=== PATIENT | female | born 1950 | race Caucasian/White ===

== ENCOUNTER 2023-01-07 15:39 | Inpatient (IN) | payer MEDICARE, MEDICAID, SELFPAY ==
[2023-01-07] VITALS (23 sets, daily range): BP systolic 105–146; BP diastolic 50–84; PULSE 78–165; RESP 13–22; TEMP 36.2–37.8; O2SAT 90–99; BMI 29.0
--- NOTE | ~2023-01-07 | CT_ITS ---
EXAMINATION: CT abdomen pelvis w con DATE: 01/07/2023 17:34 INDICATION: Vomiting TECHNIQUE: Computed tomography (CT) of the abdomen and pelvis was performed with 100 mL Omnipaque-350 intravenous contrast. Automated exposure control and iterative reconstruction technique were employe d. The dose-length product was 378.02 mGy-cm. COMPARISON: None. FINDINGS: Lower thorax: Moderate coronary artery calcification. Liver: Hepatomegaly. Biliary/Gallbladder: Gallbladder is mildly distended, otherwise normal. No bile duct dilation. Pancreas: No mass or duct dilation. Spleen: Granulomatous calcifications. Adrenals: Small left adrenal adenoma. Kidneys: Moderate right and mild left perinephric stranding. Patchy bilateral renal parenchymal enhan cement. Mild bilateral caliectasis and pelviectasis. Urothelial enhancement bilaterally. Bilateral si mple cysts and multiple hypodensities that are too small to characterize. GI tract: Mild distal esophageal and gastric wall edema. No small or large bowel dilation. Normal priscilla endix. Diverticulosis without diverticulitis. Mesentery/Peritoneum: No ascites, mass, or free air. Retroperitoneum: No mass. Atherosclerotic abdominal aortic and/or arterial calcifications. Pelvis: Mild urinary bladder wall thickening. Pelvic contents are otherwise grossly normal, although partially obscured by metal artifact. Soft Tissues: Soft tissues and body wall unremarkable. Bones: Left revision arthroplasty. Fractured cerclage wires and buttressing material adjacent to the greater tuberosity, without obvious perihardware fracture or loosening. IMPRESSION: Cystitis with findings concerning for bilateral ascending infection and pyelonephritis, worse on the right. Mild esophagitis/gastritis. Hepatomegaly. Mild gallbladder hydrops. Reviewed, dictated and finalized at location K. IMPRESSION: Cystitis with findings concerning for bilateral ascending infection and pyelone phritis, worse on the right. Mild esophagitis/gastritis. Hepatomegaly. Mild gal lbladder hydrops.
--- NOTE | 2023-01-07 15:44 | ECG_ITS ---
Measurements Intervals [place] Rate: 169 P: PA: 0 QRS: 0 QRSD: 83 T: 26 QT: 227 QTc: 380 Interpretive Statements ATRIAL FIBRILLATION WITH RAPID VENTRICULAR RESPONSE ST-T WAVE ABNORMALITY IN ANTEROLATERAL LEADS- CONSIDER ISCHEMIA BASELINE ARTIFACT- I, II, AVR ABNORMAL ECG NO PREVIOUS ECG AVAILABLE FOR COMPARISON Electronically Signed On 01-08-2023 6:34:15 CDT by Travis Richey D.O.
[2023-01-07] MEDS: dilTIAZem HCl INJ 25 MG/5 ML VIAL 20 MG IV PUSH (16:00)
[2023-01-07] MEDS: SODIUM CHLORIDE 0.9% IV 1,000 ML 999 ML IV CONT (16:01)
[2023-01-07] MEDS: dilTIAZem 100 MG/100 ML 100 MG/100 ML BAG IV CONT (16:02)
--- NOTE | 2023-01-07 16:03 | ED.ARRPALP ---
HPI - Arrhythmia/Palpitations General Chief Complaint: Arrhythmia/Palpitations Stated Complaint: afib rvr Time Seen by Provider: 01/07/23 15:48 History of Present Illness HPI narrative: This is a 72-year-old female with past history of hypertension and A-fib on aspirin who presents to the emergency department with fatigue and A-fib RVR. The patient states over the past 3 weeks she has had multiple episodes of nonbloody vomiting and diarrhea with intermittent improvement and worsening symptoms. Today she noted dyspnea on exertion that was worse than usual, prompting call to EMS. She denies chest pain, weakness, numbness or change/loss of vision or hearing. EMS reported A-fib with RVR on their monitor with a rate between 160-170. Blood pressure reported in the mid 100s systolic. Related Data Allergies Allergy/AdvReac Type Severity Reaction Status Date / Time codeine Allergy Nausea and Verified 01/07/23 15:53 Vomiting Review of Systems Review of Systems: CONSTITUTIONAL: Intermittent subjective fevers and chills denies sweats. CARDIOVASCULAR: Palpitations denies chest pain, or edema. RESPIRATORY: Dyspnea on exertion denies cough GASTROINTESTINAL: Nausea, vomiting and diarrhea denies abdominal pain GENITOURINARY: Denies dysuria or hematuria. SKIN: Denies rash or itching. MUSCULOSKELETAL: Denies back pain, joint pain, or myalgia. NEUROLOGIC: Denies headache, numbness, dizziness, or weakness. PSYCHIATRIC: Denies anxiety or depression. [facility] Past Medical History Medical History (Updated 01/07/23 @ 19:45 by Kunal Kemp MD) A-fib Hypertension Surgical History Surgical History (Updated 01/07/23 @ 16:06 by Kunal Kemp MD) Status post left knee replacement Social History Social History (Updated 01/07/23 @ 16:07 by Kunal Kemp MD) Smoking status: Current every day smoker Alcohol intake: never Substance use: never Exam Narrative: GENERAL: Well-developed, well-nourished, and in no acute distress. HEAD: Normocephalic, atraumatic. EYES: PERRLA and EOMI. ENT: Nares clear, no rhinorrhea or epistaxis. Mucous membranes moist. Oropharynx without tonsillar hypertrophy exudate or other lesions. CHEST: Clear to auscultation. No respiratory distress. No wheezes rales or rhonchi HEART: Irregularly irregular. No murmur heard. Normal peripheral pulses. ABDOMEN: Soft, nontender, nondistended, normal active bowel sounds. EXTREMITIES: Normal range of motion. No edema. SKIN: Warm, dry, no rash. NEURO: No focal deficits. Alert and oriented x3. PSYCH: Normal mood and affect. Course Course Emergency Course: 15:50 - EKG demonstrates A-fib with RVR, rate 169, without changes concerning for STEMI 15:55 - Patient given 20 mg IV diltiazem push with improvement of heart rate from the 150s to the low 100s. Blood pressure 100/46. 16:30 - Repeat EKG demonstrated improved ST depressions noted in on initial EKG. 17:47 - CT demonstrates changes consistent with Left pyelonephritis. Will treat with Rocephin. IV fluids ongoing. Potassium 2.8. Creatinine elevated to 1.7. Calcium decreased to 7.2. Troponin elevated to 0.041 with BNP elevation to 1950. COVID and influenza negative. I suspect the patient's A-fib RVR is primarily caused by pyelonephritis with resulting nausea and vomiting. Will replete potassium and magnesium discussed patient with hospitalist for admission 17:53 - Discussed patient with hospitalist [employer] Machelle who accepts admission to IMU. Vital Signs Vital signs: Vital Signs Temperature 97.2 F L 01/07/23 15:45 Pulse Rate 152 H 01/07/23 15:45 Respiratory Rate 13 01/07/23 15:45 Blood Pressure 105/51 L 01/07/23 15:45 Pulse Oximetry 96 01/07/23 15:45 Oxygen Delivery Room Air 01/07/23 15:45 Temperature 97.2 F L 01/07/23 15:45 Pulse Rate 107 H 01/07/23 18:01 Respiratory Rate 22 H 01/07/23 18:01 Blood Pressure 118/84 01/07/23 18:01 Pulse Oximetry 95 01/07/23 1
--- NOTE | 2023-01-07 16:22 | ECG_ITS ---
Measurements Intervals [place] Rate: 102 P: SD: 0 QRS: 3 QRSD: 91 T: 14 QT: 367 QTc: 479 Interpretive Statements ATRIAL FIBRILLATION WITH RAPID VENTRICULAR RESPONSE INCOMPLETE RIGHT BUNDLE BRANCH BLOCK BORDERLINE ST-T WAVE ABNORMALITY- DIFFUSE LEADS BASELINE ARTIFACT- I, II, III, AVR, AVL ABNORMAL ECG COMPARED TO ECG 01/07/2023 15:48:30 HEART RATE HAS DECREASED Electronically Signed On 01-08-2023 6:37:19 CDT by Travis Richey D.O.
[2023-01-07 16:30] LABS: Basophils Absolute Auto 0.1 K/mm3 (0.0-0.1); Basophils Percent Auto 0.4 % (0.2-1.2); Eosinophils Percent Auto 0.2 % (0-4.4); Immature Granulocyte Absolute 0.24 K/mm3 (0.00-0.031); Immature Granulocyte Percent A 1.5 % (0-0.5); Lymphocytes Absolute Auto 1.06 K/mm3 (0.9-3.2); Lymphocytes Percent Auto 6.5 % (18.3-44.2); Mean Corpuscular HGB Conc 33.3 g/dl (32-36); Mean Corpuscular Hemoglobin 28.4 pg (26-34); Mean Corpuscular Volume 85.3 fl (80-100); Mean Platelet Volume 11.9 fl (7.4-10.4); Monocytes Absolute Auto 1.8 K/mm3 (0.1-0.6); Monocytes Percent Auto 11.2 % (2.6-8.5); Neutrophils Percent Auto 80.2 % (45.5-73.1); Platelet Count Result 258 k/mm3 (150-375); Red Blood Count 3.87 M/mm3 (4.2-5.4); Red Cell Distribution Width 15.5 % (11.5-14.5); White Blood Count 16.2 K/mm3 (4.5-10.0)
[2023-01-07 16:42] LABS: INR 1.4; Prothrombin Time 17.3 Seconds (11.1-14.7)
[2023-01-07 16:43] LABS: Partial Thromboplastin Time 40.7 SECONDS (22.3-36.8)
[2023-01-07 16:55] LABS: Alanine Aminotransferase 18 U/L (6-35); Albumin Level 3.3 g/dL (3.5-5.1); Alkaline Phosphatase 71 U/L (38-126); Anion Gap 11 mmol/L (8-16); Aspartate Amino Transferase 33 U/L (14-36); Blood Urea Nitrogen 27 mg/dL (7-17); Calcium 7.2 mg/dL (8.4-10.2); Carbon Dioxide 20 mmol/L (22-30); Chloride 105 mmol/L (98-107); Estimated Glomerular Filt Rate 30; Glucose 156 mg/dL (65-110); NT Pro B Type Natriuretic Pept 1950 pg/mL (19.9-100); Potassium 2.8 mmol/L (3.4-5.0); Sodium 136 mmol/L (137-145); Troponin I 0.041 ng/mL (0.000-0.034)
[2023-01-07] MEDS: ONDANSETRON INJ 4 MG/2 ML VIAL IV PUSH (17:07)
[2023-01-07 17:12] LABS: Influenza A QL RT-PCR Negative (Negative); Influenza B QL RT-PCR Negative (Negative); SARS-CoV-2 RNA PCR Negative (Negative)
[2023-01-07] MEDS: MAGNESIUM SULF 2 GM/WATER 50ML 2 GM/50 ML BAG IVPB (18:18)
[2023-01-07] MEDS: POTASSIUM CHLORIDE INJ 40 MEQ in SODIUM CHLORIDE 0.9% IV 500 ML 130 MEQ IVPB (19:06)
[2023-01-07] MEDS: CALCIUM GLUC 2,000 MG/NS 100ML 2,000 MG/100 ML BAG 100 MG IVPB (21:31)
--- NOTE | 2023-01-07 21:47 | PM.IMHP ---
H&P: HPI History of Present Illness Date/Time: 01/07/23 21:47 Chief Complaint: Arrhythmia with palpitation Narrative: This is a 72-year-old female patient has a history of hypertension and atrial fibrillation only on aspirin. The patient came to the emergency room with fatigue and AFib with RVR. Over the last 3 weeks the patient has had multiple episodes of nonbloody vomiting and diarrhea with intermittent improvement and worsening symptoms. The patient has dyspnea on exertion. Patient denied any chest pain. The patient stated that she recently quit smoking approximately 3 weeks ago her white count was noted to be 16.2. H&H 11.0 and 33.0. Potassium 2.8 and sodium is 136. BUN is 27 and creatinine 1.7. No previous labs for comparison. Troponin 0.041 and 0.038. She was negative for influenza A/B and COVID. The patient was started on a Cardizem drip and the patient has since then converted to sinus rhythm. She was also given Zofran, magnesium, potassium, calcium gluconate and Rocephin. CT of the abdomen and pelvis was read as the following .Cystitis with findings concerning for bilateral ascending infection and pyelonephritis, worse on the right. Mild esophagitis/gastritis. Hepatomegaly. Mild gallbladder hydrops. The patient is being admitted to observation status on the date of service of 01/07/2023. Review of Systems Review of Systems: All systems reviewed & are unremarkable except as noted in HPI and below Constitutional: Constitutional: Reports as per HPI and Reports no additional constitutional complaints Eyes: Eyes: Reports as per HPI and Reports no additional eye complaints ENT: Reports system reviewed and no additional complaints, except as documented and Reports Normal hearing present Cardiovascular: Cardiovascular: Reports no additional cardiovascular complaints Respiratory: Respiratory: Reports no additional respiratory complaints and Reports no additional respiratory complaints Gastrointestinal: Gastrointestinal: Reports as per HPI and Reports no additional gastrointestinal complaints Musculoskeletal: Musculoskeletal: Reports no additional musculoskeletal complaints Integumentary/Breasts: Skin/Breast: Reports system reviewed and no additional complaints, except as docu and Reports as per HPI Neurologic: Reports system reviewed and no additional complaints, except as documented, Reports as per HPI and Reports Normal hearing present Psychiatric: Psychiatric: Reports no additional psychiatric complaints and Reports as per HPI Endocrine: Endocrine: Reports no additional endocrine complaints Hematologic/Lymphatic: Hematologic/Lymphatic: Reports no additional hematologic/lymphatic complaints Allergic/Immunologic: Allergic/Immunologic: Reports no additional allergic/immunologic complaints [facility] Past Medical History Medical History (Updated 01/08/23 @ 00:11 by Machelle Marrero NP) A-fib Chronic GERD COPD (chronic obstructive pulmonary disease) Hyperlipidemia Hypertension Pyelonephritis Surgical History Surgical History (Updated 01/07/23 @ 21:49 by Machelle Marrero NP) History of total hip replacement times 4 S/P ORIF (open reduction internal fixation) fracture left and ankle and right arm Status post left knee replacement Family History Family History (Updated 01/07/23 @ 21:50 by Machelle Marrero NP) Father Heart disease Mother Heart disease Sibling Heart disease Diabetes mellitus Hypertension Social History Social History (Updated 01/07/23 @ 23:54 by Machelle Marrero NP) Social History: The patient quit smoking 4 weeks ago . She is and has 2 children. she has been on disability. Code status full code Smoking status: Current every day smoker Alcohol intake: never Substance use: never Lack of Transportation: No Lack of Food: Never True Current Housing: I Have Housing Concerned About Future Housing: No Difficulty Paying Gas/Electric Bills: No Difficulty
[2023-01-07] MEDS: LORazepam INJ (*CRX) 2 MG/ML VIAL 0.5 MG IV PUSH (22:35)
--- NOTE | 2023-01-07 22:50 | ADMGEN ---
This patient, Missy Pascual, was admitted to IMU Room 213-01. Patient/family oriented to hospital policies and general routines including ID bracelet, bed and alarms, visiting hours, pain management, procedures, bathroom and other care routines, personal items, smoking policy, room service/diet, and visiting hours. Information on how to activate the Rapid Response Team has been discussed. Patient/Family are encouraged to report perceived risks to care and to ask questions if they do not understand what they are told or what they should do.
[2023-01-07] MEDS: SODIUM CHLORIDE 0.9% IV 1,000 ML 125 ML IV CONT (22:51)
--- NOTE | 2023-01-07 23:06 | ECG_ITS ---
Measurements Intervals [place] Rate: 90 P: -3 MT: 129 QRS: 13 QRSD: 93 T: 31 QT: 375 QTc: 460 Interpretive Statements SINUS RHYTHM INCOMPLETE RIGHT BUNDLE BRANCH BLOCK NONSPECIFIC ST & T-WAVE ABNORMALITY- ANT/INF LEADS BASELINE ARTIFACT- I, II, V1, V3 BORDERLINE ECG COMPARED TO ECG 01/07/2023 16:29:32 SINUS RHYTHM NOW PRESENT Electronically Signed On 01-08-2023 6:43:49 CDT by Travis Richey D.O.
[2023-01-07 23:16] LABS: Troponin I 0.038 ng/mL (0.000-0.034)
[2023-01-08] VITALS (10 sets, daily range): BP systolic 116–141; BP diastolic 54–75; PULSE 81–99; RESP 18–22; TEMP 36.3–37.6; O2SAT 93–99; BMI 29.0
--- NOTE | 2023-01-08 | ECHO_ITS ---
Patient Info Name: Missy Pascual Age: 72 years : 1950 Gender: Female Ht: 60 in Wt: 148 lbs BSA: 1.71 m2 HR: 99 bpm BP: 141 / 75 mmHg Heart Rhythm: Sinus Rhythm Technical Quality: Fair Exam Date: 01/08/2023 10:25 AM Exam Location: [facility] Patient Status: Outpatient Admit Date: 01/07/2023 Staff Ordering Physician: Machelle Marrero NP Patrol Sergeant: Kristyn Almonte RDCS Attending Provider: Chantal Dutton DO Referring Physician: Elida HAMLIN; Exam Type: CA echo doppler color flow Study Info Indications - Afib with RVR Complete two-dimensional, color flow and Doppler transthoracic echocardiogram is performed. Summary 1. Complete two-dimensional, color flow and Doppler transthoracic echocardiogram is performed. 2. Normal left ventricular size and thickness with good contractility of all segments. Ejection fraction is 60%. Grade 2 diastolic dysfunction is present. 3. Mild left atrial enlargement. 4. Mild mitral regurgitation. 5. Mild pulmonary hypertension, estimated pulmonary arterial systolic pressure is 37 mmHg. 6. Normal sinus rhythm. Left Ventricle Left ventricular chamber dimension is normal. Left ventricular systolic function is normal, estimated at 65-70%. There is no increased left ventricular wall thickness. Left ventricular septal wall motion is normal. The left ventricular diastolic function is grade II diastolic dysfunction. Right Ventricle Right ventricular chamber dimension is normal. Right ventricular systolic function is normal. Left Atria Left atrial chamber dimension is mildly enlarged. Right Atria Right atrial chamber dimension is normal. Aortic Valve The aortic valve is trileaflet. There is no aortic valve sclerosis. There is no aortic valve stenosis. There is no aortic valve regurgitation. Pulmonic Valve The pulmonic valve is normal. There is no pulmonic valve stenosis. There is no pulmonic regurgitation. Mitral Valve The mitral valve has thickened leaflets. There is no mitral valve stenosis. There is mild mitral valve regurgitation. Tricuspid Valve The tricuspid valve leaflets are normal. There is no significant tricuspid valve stenosis. There is trace tricuspid valve regurgitation. Mild pulmonary hypertension, estimated pulmonary arterial systolic pressure is 37 mmHg. Pericardium/Pleural The pericardium appears normal. There is no pericardial effusion. Inferior Vena Cava Normal inferior vena cava with >50% collapse upon inspiration consistent with Empty right atrial pressure, 10 mmHg. Aorta The aortic root size at the sinus of Valsalva is normal. The prox ascending aorta size is normal. Left Ventricular Outflow Tract Name Value Normal LVOT 2D LVOT Diameter 2.0 cm LVOT Doppler LVOT Peak Gradient 4 mmHg LVOT Mean Gradient 2 mmHg LVOT VTI 22 cm LVOT VTI/AV VTI Ratio 0.7 LVOT Stroke Volume 65 ml LVOT CO 4.8 l/min LVOT CI 2.8 l/min/m2 Pulmonic Valve
[2023-01-08 00:22] LABS: Lactic Acid Reflex 2.7 mmol/L (0.7-2.0)
[2023-01-08 00:29] LABS: Anion Gap 12 mmol/L (8-16); Blood Urea Nitrogen 21 mg/dL (7-17); Calcium 8.3 mg/dL (8.4-10.2); Carbon Dioxide 19 mmol/L (22-30); Chloride 108 mmol/L (98-107); Estimated CRCL calculation 24 ml/min; Estimated Glomerular Filt Rate 30; Glucose 135 mg/dL (65-110); Potassium 2.8 mmol/L (3.4-5.0); Sodium 139 mmol/L (137-145)
[2023-01-08] MEDS: POTASSIUM CHLORIDE INJ 40 MEQ in SODIUM CHLORIDE 0.9% IV 500 ML 130 MEQ IVPB (02:00)
--- NOTE | 2023-01-08 02:22 | PC.NURSE ---
2315 Machelle KEENE informed of Sinus rhythm per monitor, ekg completed to confirm. orders received. 2325 Cardizem gtt discontinued as ordered.
[2023-01-08 03:10] LABS: Reflex Lactic Acid Yes or No Add Lactic
[2023-01-08] MEDS: ALENDRONATE SODIUM 70 MG TABLET PO (06:19)
[2023-01-08 07:01] LABS: Basophils Absolute Auto 0.1 K/mm3 (0.0-0.1); Basophils Percent Auto 0.4 % (0.2-1.2); Eosinophils Percent Auto 0.2 % (0-4.4); Hematocrit 30.8 % (37.0-47.0); Hemoglobin 10.3 g/dL (12.0-15.0); Immature Granulocyte Absolute 0.17 K/mm3 (0.00-0.031); Immature Granulocyte Percent A 1.2 % (0-0.5); Lymphocytes Absolute Auto 1.15 K/mm3 (0.9-3.2); Lymphocytes Percent Auto 8.2 % (18.3-44.2); Mean Corpuscular HGB Conc 33.4 g/dl (32-36); Mean Corpuscular Hemoglobin 28.6 pg (26-34); Mean Corpuscular Volume 85.6 fl (80-100); Mean Platelet Volume 11.6 fl (7.4-10.4); Monocytes Absolute Auto 1.5 K/mm3 (0.1-0.6); Monocytes Percent Auto 10.6 % (2.6-8.5); Neutrophils Absolute Auto 11.2 K/mm3 (1.3-6.7); Neutrophils Percent Auto 79.4 % (45.5-73.1); Platelet Count Result 279 k/mm3 (150-375); Red Cell Distribution Width 15.8 % (11.5-14.5); White Blood Count 14.1 K/mm3 (4.5-10.0)
[2023-01-08 07:12] LABS: Lactic Acid Reflex 1.1 mmol/L (0.7-2.0)
[2023-01-08 07:21] LABS: Alanine Aminotransferase 15 U/L (6-35); Alkaline Phosphatase 90 U/L (38-126); Anion Gap 8 mmol/L (8-16); Aspartate Amino Transferase 21 U/L (14-36); Bilirubin,Total 0.6 mg/dL (0.2-1.3); Blood Urea Nitrogen 15 mg/dL (7-17); Calcium 7.8 mg/dL (8.4-10.2); Carbon Dioxide 20 mmol/L (22-30); Chloride 111 mmol/L (98-107); Estimated CRCL calculation 31 ml/min; Estimated Glomerular Filt Rate 40; Glucose 115 mg/dL (65-110); Magnesium 2.4 mg/dL (1.6-2.3); Potassium 3.3 mmol/L (3.4-5.0); Sodium 139 mmol/L (137-145)
[2023-01-08 07:22] LABS: Crenated RBC 1+ (NORMAL); Platelet Estimate Adequate (Adequate); Schistocytes None Seen (NORMAL)
[2023-01-08 07:44] LABS: Thyroid Stimulating Hormone Reflex 0.884 uIU/mL (0.465-4.68)
[2023-01-08] MEDS: PANTOPRAZOLE 40 MG TABLET PO (08:26)
[2023-01-08] MEDS: METOPROLOL SUCCINATE EXT REL 50 MG TABCR PO (08:26)
[2023-01-08] MEDS: ASPIRIN 81 MG ENTERIC TABLET PO (08:27)
[2023-01-08] MEDS: POTASSIUM CHLORIDE 20 MEQ TABLET 40 MEQ PO (08:27)
[2023-01-08] MEDS: ISOSORBIDE MONONITRATE 30 MG TAB.ER.24H PO ×2 (08:27→17:06)
[2023-01-08] MEDS: PRAVASTATIN SODIUM 20 MG TABLET PO (08:27)
[2023-01-08] MEDS: FENOFIBRATE 160 MG TABLET PO (08:27)
[2023-01-08] MEDS: CHOLECALCIFEROL 1,000 UNITS TABLET 2000 UNITS PO (08:27)
[2023-01-08] MEDS: ENOXAPARIN 80 MG/0.8 ML SYRINGE 65 MG SUB-Q ×2 (08:27→20:09)
[2023-01-08] MEDS: SODIUM CHLORIDE 0.9% IV 1,000 ML 75 ML IV CONT (12:04)
--- NOTE | 2023-01-08 12:04 | PM.CNCAR ---
Assessment and Plan Assessment and plan (1) Atrial fibrillation with RVR: Code(s): I48.91 - Unspecified atrial fibrillation Status: Acute Plan Atrial fibrillation with RVR. Now in sinus rhythm. Known history of atrial fibrillation, only on ASA as an outpatient. If patient goes back into AFIB, can increase her beta dee as tolerated. Continue with Toprol 50mg QD for now. K significantly low at 2.8 on admission, now at 3.3. Replete K to 4. Echo ordered and pending. Her [id number]-LCPE is 3 due to age, gender, hypertension. Would recommend oral anticoagulation for stroke prophylaxis. Patient to follow up with her primary Tugboat Mate at [facility] after hospital discharge. History of Present Illness History of Present Illness Consult date/time: 01/08/23 12:04 Requesting physician: Machelle Marrero NP Consult reason: atrial fibrillation Reason For Visit: Pyelonephritis,AFIB w/RVR Narrative: We are consulted for atrial fibrillation with RVR. This is a 72-year-old female with a history of hypertension and atrial fibrillation on ASA only who presented to [place] ER for fatigue, vomiting, diarrhea. Found to be in atrial fibrillation with RVR, along with pyelonephritis. Started on Cardizem drip for atrial fibrillation, ended up converting to sinus rhythm. Patient reports fatigue and nausea this morning. No chest pain. States her primary optical mechanic is at [facility]. Review of Systems Review of Systems: All systems reviewed & are unremarkable except as noted in HPI and below (HPI) [facility] Past Medical History Medical History A-fib Chronic GERD COPD (chronic obstructive pulmonary disease) Hyperlipidemia Hypertension Pyelonephritis Surgical History Surgical History History of total hip replacement times 4 S/P ORIF (open reduction internal fixation) fracture left and ankle and right arm Status post left knee replacement Family History Family History Father Heart disease Mother Heart disease Sibling Heart disease Diabetes mellitus Hypertension Social History Social History Social History: The patient quit smoking 4 weeks ago . She is and has 2 children. she has been on disability. Code status full code Smoking status: Current every day smoker Alcohol intake: never Substance use: never Lack of Transportation: No Lack of Food: Never True Current Housing: I Have Housing Concerned About Future Housing: No Difficulty Paying Gas/Electric Bills: No Difficulty Paying for Meds: No Currently Unemployed: No Education: Decline to Answer Difficulty w/ Childcare or Family Care: No Spiritual care concerns: No Meds Home Medications and Allergies Home Medications Medication Instructions Recorded Confirmed Type albuterol sulfate 90 mcg/actuation 2 puff inhalation Q4H PRN sob 01/07/23 01/07/23 History aerosol inhaler alendronate 70 mg tablet 70 mg PO WEEKLY 01/07/23 01/07/23 History amlodipine 5 mg tablet 5 mg PO DAILY 01/07/23 01/08/23 History aspirin 81 mg tablet,delayed 81 mg PO DAILY 01/07/23 01/07/23 History release cholecalciferol (vitamin D3) 50 50 mcg PO DAILY 01/07/23 01/07/23 History mcg (2,000 unit) tablet (Vitamin D3) famotidine 40 mg tablet 40 mg PO HS 01/07/23 01/07/23 History fenofibrate 160 mg tablet 160 mg PO DAILY 01/07/23 01/07/23 History hydrocodone 5 mg-acetaminophen 325 1 tablet PO Q4-6H PRN Pain (Scale 01/07/23 01/07/23 History mg tablet Score 4-6) irbesartan 150 mg tablet 150 mg PO DAILY 01/07/23 01/08/23 History isosorbide mononitrate 30 mg 30 mg PO BID 01/07/23 01/07/23 History tablet,extended release 24 hr metoprolol succinate 50 mg 50 mg PO DAILY 01/07/23 01/07/23 History tablet,extended release 24 hr nitrogly
--- NOTE | 2023-01-08 12:58 | PM.IMPN ---
Progress Note: A&P Assessment and Plan (1) Pyelonephritis: Code(s): N12 - Tubulo-interstitial nephritis, not specified as acute or chronic Status: Acute Assessment and Plan: Check UA continue with Rocephin Pyelonephritis as per CT scan Patient has dark foul-smelling urine Blood in urine cultures are pending Tailor antibiotics according to culture and sensitivities. Leukocytosis improving (2) Atrial fibrillation with RVR: Code(s): I48.91 - Unspecified atrial fibrillation Status: Acute Assessment and Plan: Presented with AFib with RVR on arrival to the ER. Patient converted with IV push Cardizem History of proximal atrial fibrillation Follows with Dr. floyd as an outpatient basis Echo pending On aspirin for stroke prophylaxis Restarted on beta-dee Was hypokalemic on admission (3) Hyperlipidemia: Code(s): E78.5 - Hyperlipidemia, unspecified Status: Acute Assessment and Plan: Continue pravastatin (4) Hypertension: Code(s): I10 - Essential (primary) hypertension Status: Acute Assessment and Plan: Continue with metoprolol Isosorbide mononitrate (5) COPD (chronic obstructive pulmonary disease): Code(s): J44.9 - Chronic obstructive pulmonary disease, unspecified Status: Acute Assessment and Plan: Continue with albuterol (6) Chronic GERD: Code(s): K21.9 - Gastro-esophageal reflux disease without esophagitis Status: Acute Assessment and Plan: Continue with Pepcid (7) Hypokalemia: Code(s): E87.6 - Hypokalemia Status: Acute Assessment and Plan: Replace recheck and monitor (8) Hypocalcemia: Code(s): E83.51 - Hypocalcemia Status: Acute Assessment and Plan: The patient was given calcium gluconate In the ER (9) Acute kidney injury: Code(s): N17.9 - Acute kidney failure, unspecified Status: Acute Assessment and Plan: Continue with IV fluids. No previous labs for comparison Most likely pre renal azotemia Slow down IV fluid today (10) Cardiac enzymes elevated: Code(s): R74.8 - Abnormal levels of other serum enzymes Status: Acute Assessment and Plan: Most likely related today AFib with RVR. Cardiology has been consulted And echos been ordered Patient's troponin level his declining and almost normal. Subjective Date/time seen: 01/08/23 12:58 Interval history: P better. Still feels a little nauseous but no more vomiting. Abdominal discomfort has improved. Review of Systems Review of Systems: All systems reviewed & are unremarkable except as noted in HPI and below Exam Narrative: GENERAL: Well-developed, well-nourished, and in no acute distress. HEAD: Normocephalic, atraumatic. EYES: PERRLA and EOMI. ENT: Nares clear, no rhinorrhea or epistaxis.? Mucous membranes moist.? CHEST: Clear to auscultation.? No respiratory distress.? No wheezes rales or rhonchi HEART: Irregularly irregular.? No murmur heard.? Normal peripheral pulses. ABDOMEN: Soft, nontender, nondistended, normal active bowel sounds. EXTREMITIES: Normal range of motion.? No edema. SKIN: Warm, dry, no rash. NEURO: No focal deficits.? Alert and oriented x3. PSYCH: Normal mood and affect. Objective Data Vital Signs Vital Signs: Vital Signs - 24 hr 01/07/23 15:45 01/07/23 16:02 01/07/23 16:04 Temperature 97.2 F L Pulse Rate 152 H 165 H 125 H Respiratory Rate 13 18 Blood Pressure 105/51 L 105/82 Pulse Oximetry 96 93 Oxygen Delivery Room Air 01/07/23 17:01 01/07/23 18:01 01/07/23 19:55 Temperature 100.1 F H Pulse Rate 104 H 107 H 81 Respiratory Rate 21 H 22 H 20 Blood Pressure 113/78 118/84 107/50 L Pulse Oximetry 97 95 91 Oxygen Delivery 01/07/23 19:15 01/07/23 19:30 01/07/23 19:54 Temperature Pulse Rate 80 78 83 Respiratory Rate Blood Pressure Pulse Oximetry 93 90 90 Oxygen Delivery
[2023-01-08] MEDS: HYDROcodone/acetaminophen (*CRX) 5-325 MG TABLET 1 TAB PO ×2 (14:58→22:00)
[2023-01-08 15:38] LABS: Appearance Urine Clear (Clear); Bacteria Urine None Seen /hpf; Bilirubin Urine Negative (Negative); Blood Urine 2+ (Negative); Color Urine Yellow (Yellow); Glucose Urine UA Negative (Negative); Ketones Urine Negative (Negative); Leukocyte Esterase Ur Trace LEU/UL (Negative); Nitrate Urine Negative (Negative); Non Pathogenic Casts 0-2; Protein Urine 1+ mg/dL (Negative); Specific Grav Ur 1.012 (1.001-1.035); Squamous Epithelial Cell Urine None seen /hpf (Few); pH Urine 5.5 (5.0-9.0)
[2023-01-08 15:39] LABS: Add Urine Microscopic? YES
[2023-01-08 15:55] LABS: Amphetamine Screen Urine Negative (Negative); Barbiturate Screen Urine Negative (Negative); Benzodiazepines Screen Urine Negative (Negative); Cannabinoid Screen Urine Negative (Negative); Cocaine Screen Urine Negative (Negative); Methadone Screen Urine Negative (Negative); Opiate Screen Urine Positive (Negative); Phencyclidine Screen Urine Negative (Negative)
[2023-01-08 17:05] LABS: Glucose Point of Care 156 mg/dl (65-105)
[2023-01-08] MEDS: ONDANSETRON INJ 4 MG/2 ML VIAL IV PUSH (18:12)
--- NOTE | 2023-01-08 18:17 | PC.NURSE ---
This patient, Missy Pascual, was transferred to [[facility]] on 01/08/23 at 1817. Personal belongings sent with patient. Report given to [ARYAN Delgado @ [id number] ]. Appropriate documentation sent with patient.
--- NOTE | 2023-01-08 18:23 | ADMGEN ---
This patient, Missy Pascual, was admitted to Medical Room 341-01 at 1823 from IMU 213. Patient/family oriented to hospital policies and general routines including ID bracelet, bed and alarms, visiting hours, pain management, procedures, bathroom and other care routines, personal items, smoking policy, room service/diet, and visiting hours. Information on how to activate the Rapid Response Team has been discussed. Patient/Family are encouraged to report perceived risks to care and to ask questions if they do not understand what they are told or what they should do.
[2023-01-08] MEDS: FAMOTIDINE 20 MG TABLET 40 MG PO (20:09)
[2023-01-08] MEDS: ACETAMINOPHEN 325 MG TABLET 650 MG PO (20:10)
[2023-01-09] VITALS (8 sets, daily range): BP systolic 113–147; BP diastolic 50–64; PULSE 69–93; RESP 18–20; TEMP 36.8–38.8; O2SAT 96–97
[2023-01-09] MEDS: HYDROcodone/acetaminophen (*CRX) 5-325 MG TABLET 1 TAB PO ×3 (05:45→22:59)
[2023-01-09 06:19] LABS: Basophils Percent Auto 0.3 % (0.2-1.2); Eosinophils Absolute Auto 0.1 K/mm3 (0-0.3); Hematocrit 32.6 % (37.0-47.0); Hemoglobin 10.5 g/dL (12.0-15.0); Immature Granulocyte Absolute 0.16 K/mm3 (0.00-0.031); Immature Granulocyte Percent A 1.2 % (0-0.5); Lymphocytes Absolute Auto 1.67 K/mm3 (0.9-3.2); Lymphocytes Percent Auto 12.4 % (18.3-44.2); Mean Corpuscular HGB Conc 32.2 g/dl (32-36); Mean Corpuscular Hemoglobin 28.4 pg (26-34); Mean Corpuscular Volume 88.1 fl (80-100); Mean Platelet Volume 11.7 fl (7.4-10.4); Monocytes Absolute Auto 1.2 K/mm3 (0.1-0.6); Monocytes Percent Auto 8.8 % (2.6-8.5); Neutrophils Absolute Auto 10.3 K/mm3 (1.3-6.7); Neutrophils Percent Auto 76.3 % (45.5-73.1); Platelet Count Result 328 k/mm3 (150-375); White Blood Count 13.5 K/mm3 (4.5-10.0)
[2023-01-09 06:40] LABS: Alanine Aminotransferase 19 U/L (6-35); Alkaline Phosphatase 91 U/L (38-126); Anion Gap 12 mmol/L (8-16); Aspartate Amino Transferase 26 U/L (14-36); Bilirubin,Total 0.6 mg/dL (0.2-1.3); Blood Urea Nitrogen 10 mg/dL (7-17); Carbon Dioxide 19 mmol/L (22-30); Chloride 109 mmol/L (98-107); Estimated CRCL calculation 36 ml/min; Estimated Glomerular Filt Rate 49; Glucose 122 mg/dL (65-110); Potassium 3.2 mmol/L (3.4-5.0); Sodium 140 mmol/L (137-145)
[2023-01-09 07:22] LABS: Burr Cells 1+ (NORMAL); Large Platelets Present; Platelet Clumps Present; Poikilocytosis 1+ (NORMAL); Schistocytes None Seen (NORMAL)
--- NOTE | 2023-01-09 07:25 | PC.NURSE ---
Paper documentation exists on this patient due to [facility] System downtime on 01/08/23 from 2200 to [0600] .
[2023-01-09] MEDS: FENOFIBRATE 160 MG TABLET PO (09:28)
[2023-01-09] MEDS: CHOLECALCIFEROL 1,000 UNITS TABLET 2000 UNITS PO (09:28)
[2023-01-09] MEDS: PANTOPRAZOLE 40 MG TABLET PO (09:28)
[2023-01-09] MEDS: METOPROLOL SUCCINATE EXT REL 50 MG TABCR PO (09:28)
[2023-01-09] MEDS: ASPIRIN 81 MG ENTERIC TABLET PO (09:28)
[2023-01-09] MEDS: PRAVASTATIN SODIUM 20 MG TABLET PO (09:28)
[2023-01-09] MEDS: ISOSORBIDE MONONITRATE 30 MG TAB.ER.24H PO ×2 (09:28→18:10)
[2023-01-09] MEDS: POTASSIUM CHLORIDE 20 MEQ TABLET 40 MEQ PO (09:33)
[2023-01-09] MEDS: ONDANSETRON INJ 4 MG/2 ML VIAL IV PUSH (09:33)
[2023-01-09] MEDS: ENOXAPARIN 80 MG/0.8 ML SYRINGE 65 MG SUB-Q ×2 (09:34→20:38)
--- NOTE | 2023-01-09 12:31 | PM.IMPN ---
Progress Note: A&P Assessment and Plan (1) Pyelonephritis: Code(s): N12 - Tubulo-interstitial nephritis, not specified as acute or chronic Status: Acute Assessment and Plan: continue with Rocephin Pyelonephritis as per CT scan Patient has dark foul-smelling urine Blood & urine cultures are pending Tailor antibiotics according to culture and sensitivities. (2) Atrial fibrillation with RVR: Code(s): I48.91 - Unspecified atrial fibrillation Status: Acute Assessment and Plan: Presented with AFib with RVR on arrival to the ER. Patient converted with IV push Cardizem History of proximal atrial fibrillation Follows with Dr. floyd as an outpatient basis Echo showed diastolic dysfunction On aspirin for stroke prophylaxis Restarted on beta-dee (3) Hyperlipidemia: Code(s): E78.5 - Hyperlipidemia, unspecified Status: Acute Assessment and Plan: Continue pravastatin (4) Hypertension: Code(s): I10 - Essential (primary) hypertension Status: Acute Assessment and Plan: Continue with metoprolol Isosorbide mononitrate (5) COPD (chronic obstructive pulmonary disease): Code(s): J44.9 - Chronic obstructive pulmonary disease, unspecified Status: Acute Assessment and Plan: Continue with albuterol (6) Chronic GERD: Code(s): K21.9 - Gastro-esophageal reflux disease without esophagitis Status: Acute Assessment and Plan: Continue with Pepcid (7) Hypokalemia: Code(s): E87.6 - Hypokalemia Status: Acute Assessment and Plan: Replace recheck and monitor Subjective Date/time seen: 01/09/23 12:31 Interval history: Stable. Review of Systems Review of Systems: All systems reviewed & are unremarkable except as noted in HPI and below Exam Narrative: GENERAL: Well-developed, well-nourished, and in no acute distress. HEAD: Normocephalic, atraumatic. EYES: PERRLA and EOMI. ENT: Nares clear, no rhinorrhea or epistaxis.? Mucous membranes moist.? CHEST: Clear to auscultation.? No respiratory distress.? No wheezes rales or rhonchi HEART: Irregularly irregular.? No murmur heard.? Normal peripheral pulses. ABDOMEN: Soft, nontender, nondistended, normal active bowel sounds. EXTREMITIES: Normal range of motion.? No edema. SKIN: Warm, dry, no rash. NEURO: No focal deficits.? Alert and oriented x3. PSYCH: Normal mood and affect. Objective Data Vital Signs Vital Signs: Vital Signs - 24 hr 01/08/23 16:00 01/08/23 16:00 01/08/23 19:17 Temperature 98.4 F 99.7 F H Pulse Rate 85 85 89 Respiratory Rate 20 21 H Blood Pressure 116/54 L 118/57 L Pulse Oximetry 95 97 Oxygen Delivery 01/08/23 20:00 01/09/23 09:28 01/09/23 08:00 Temperature Pulse Rate 87 85 Respiratory Rate Blood Pressure Pulse Oximetry Oxygen Delivery Room Air Intake/Output Intake/Output: Intake & Output 01/06/23 01/07/23 01/08/23 01/09/23 23:59 23:59 23:59 23:59 Intake Total 1100 / 1100 1550 / 1550 290 / 290 Output Total 550 / 550 1800 / 1800 Balance 550 / 550 -250 / -250 290 / 290 Meds/Results Medications: Active Medications Generic Name Dose Route Start Last Admin Trade Name Freq PRN Reason Stop Dose Admin Acetaminophen 650 mg 01/07/23 21:46 01/08/23 20:10 Acetaminophen 325 Mg Tablet PO 650 mg Q4H PRN Administration Headache Hydrocodone Bitart/Acetaminophen 1 tab 01/07/23 23:50 01/09/23 05:45 Hydrocodone/Acetaminophen (*Crx) 5-325 Mg Tablet PO 1 tab Q4-6H PRN Administration Pain (Scale Score 4-6) Albuterol 2 puff 01/07/23 23:50 Albuterol Sulfate (*Sp) Aerosol 1 Puff INHALATION Q4H PRN sob Alendronate Sodium 70 mg 01/08/23 06:30 01/08/23 06:19 Alendronate Sodium 70 Mg Tablet PO 70 mg Tu@0630 FRANK Administration Aspirin 81 mg 01/08/23 09:00 01/09/23 09:28 Aspirin 81 Mg Enteric Tablet PO 81 mg DAILY FRANK
[2023-01-09] MEDS: FAMOTIDINE 20 MG TABLET 40 MG PO (20:38)
[2023-01-09] MEDS: ACETAMINOPHEN 325 MG TABLET 650 MG PO (20:39)
[2023-01-10] VITALS: PULSE 65
[2023-01-10 04:00] VITALS: PULSE 71
[2023-01-10] MEDS: HYDROcodone/acetaminophen (*CRX) 5-325 MG TABLET 1 TAB PO ×2 (04:43→08:54)
[2023-01-10] MEDS: ONDANSETRON INJ 4 MG/2 ML VIAL IV PUSH ×2 (05:29→11:33)
[2023-01-10 06:00] VITALS: BP 126/56; PULSE 72; RESP 18; TEMP 36.4; O2SAT 97
[2023-01-10 08:00] VITALS: PULSE 64
[2023-01-10] MEDS: PANTOPRAZOLE 40 MG TABLET PO (08:50)
[2023-01-10] MEDS: ASPIRIN 81 MG ENTERIC TABLET PO (08:51)
[2023-01-10] MEDS: ISOSORBIDE MONONITRATE 30 MG TAB.ER.24H PO (08:51)
[2023-01-10] MEDS: CHOLECALCIFEROL 1,000 UNITS TABLET 2000 UNITS PO (08:51)
[2023-01-10] MEDS: FENOFIBRATE 160 MG TABLET PO (08:51)
[2023-01-10] MEDS: PRAVASTATIN SODIUM 20 MG TABLET PO (08:51)
[2023-01-10] MEDS: ENOXAPARIN 80 MG/0.8 ML SYRINGE 65 MG SUB-Q (08:51)
[2023-01-10 08:52] VITALS: PULSE 75
[2023-01-10] MEDS: METOPROLOL SUCCINATE EXT REL 50 MG TABCR PO (08:52)
--- NOTE | 2023-01-10 11:11 | PM.DS ---
DS: Admitting Diagnosis Discharge Date 01/10/2023 Admitting Diagnosis AFib with RVR UTI DS: Discharge Diagnosis Discharge Diagnosis (1) A-fib: Code(s): I48.91 - Unspecified atrial fibrillation Status: Acute (2) Acute pyelonephritis: Code(s): N10 - Acute pyelonephritis Status: Acute (3) Hyperlipidemia: Code(s): E78.5 - Hyperlipidemia, unspecified Status: Acute DS: Summary Hospital Course Hospital Course: This is a 72-year-old female patient has a history of hypertension and atrial fibrillation only on aspirin.? The patient came to the emergency room with fatigue and AFib with RVR.? H&H 11.0 and 33.0.? Potassium 2.8 and sodium is 136.? BUN is 27 and creatinine 1.7.? No previous labs for comparison.? Troponin 0.041 and 0.038.? She was negative for influenza A/B and COVID.? The patient was started on a Cardizem drip and the patient has since then converted to sinus rhythm.? Cardiology was consulted and recommended patient to be started on anticoagulation for stroke prophylaxis. CT of the abdomen and pelvis was read as the following .Cystitis with findings concerning for bilateral ascending infection and pyelonephritis, worse on the right. Mild esophagitis/gastritis. Hepatomegaly. Mild gallbladder hydrops.? Patient was started on IV Rocephin for cystitis. Blood and urine cultures have been negative. Patient is clinically stable and will be discharged home today with oral Levaquin Time Spent with Patient Time attestation: Total time spent providing and/or coordinating discharge services: Exam Narrative: GENERAL: Well-developed, well-nourished, and in no acute distress. HEAD: Normocephalic, atraumatic. EYES: PERRLA and EOMI. ENT: Nares clear, no rhinorrhea or epistaxis.? Mucous membranes moist.? CHEST: Clear to auscultation.? No respiratory distress.? No wheezes rales or rhonchi HEART: Irregularly irregular.? No murmur heard.? Normal peripheral pulses. ABDOMEN: Soft, nontender, nondistended, normal active bowel sounds. EXTREMITIES: Normal range of motion.? No edema. SKIN: Warm, dry, no rash. NEURO: No focal deficits.? Alert and oriented x3. PSYCH: Normal mood and affect. DS: Data Data Completed and Pending Labs on day of discharge: Preliminary micro results at discharge 01/08/23 07:36 Blood Culture - Preliminary Blood 01/08/23 06:48 Blood Culture - Preliminary Blood Discharge Plan Discharge Consulting providers: Missy Balderas Discharging Clinician: Johnyn Corley Anticipated Discharge Date/Time: 01/10/23 11:08 Patient Disposition: Home, Self-Care Activity: no preference Diet: heart healthy Patient Instructions: Antibiotic Form, How to Stop Smoking (DC) Stand Alone Forms: General Discharge Information Follow-up/Referrals: PHYSICIAN NOT ON STAFF,NONSTAFF [Primary Care Provider] - Discharge Medications: New levofloxacin 750 mg tablet 750 mg PO DAILY Qty: 4 0RF rivaroxaban 2.5 mg tablet 5 mg PO BID Qty: 60 0RF Continued metoprolol succinate 50 mg tablet extended release 24 hr 50 mg PO DAILY hydrocodone-acetaminophen 5-325 mg tablet 1 tablet PO Q4-6H PRN (Reason: Pain (Scale Score 4-6)) famotidine 40 mg tablet 40 mg PO HS isosorbide mononitrate 30 mg tablet extended release 24 hr 30 mg PO BID alendronate 70 mg tablet 70 mg PO WEEKLY amlodipine 5 mg tablet 5 mg PO DAILY aspirin 81 mg tablet,delayed release (DR/EC) 81 mg PO DAILY nitroglycerin 0.4 mg tablet, sublingual 0.4 mg sublingual DIRECTED PRN (Reason: Chest Pain) omeprazole 20 mg capsule,delayed release(DR/EC) 20 mg PO DAILY pravastatin 20 mg tablet 20 mg PO DAILY irbesartan 150 mg tablet 150 mg PO DAILY albuterol sulfate 90 mcg/actuation HFA aerosol inhaler 2 puff INHALATION Q4H PRN (Reason: sob) fenofibrate 160 mg tablet 160 mg PO DAILY cholecalciferol (vitamin D3
== END 2023-01-10 13:48 | disposition home or self-care (01) | DRG 690 ==
LOC: ANHED 16:42 → ANHIMU 19:45 → ANH3MED 01-08 18:21
PROVIDERS: Internal Medicine; Nurse Practitioner; Admitting Provider Student in an Organized Health Care Education/Training Program; Emergency Provider Preventive Medicine Aerospace Medicine; Visit Provider Hospitalist
DX: N10 Acute pyelonephritis (principal); I48.91 Unspecified atrial fibrillation; E78.5 Hyperlipidemia, unspecified; E87.6 Hypokalemia; E83.51 Hypocalcemia; I10 Essential (primary) hypertension; J44.9 Chronic obstructive pulmonary disease, unspecified; K21.9 Gastro-esophageal reflux disease without esophagitis; N17.9 Acute kidney failure, unspecified; N30.90 Cystitis, unspecified without hematuria; Z20.822 Contact with and (suspected) exposure to COVID-19; Z79.82 Long term (current) use of aspirin; Z96.649 Presence of unspecified artificial hip joint; Z96.652 Presence of left artificial knee joint; Z87.891 Personal history of nicotine dependence
CPT/HCPCS: 36415; 74177; 80048; 80053; 80307; 81001; 82948; 83605; 83735; 83880; 84443; 84484; 85025; 85610; 85730; 87040; 87086; 87636; 93005; 93306; 96361; 96365; 96367; 96372; 96375; 96376; 99285; A9270; G0378; J0613; J0696; J1650; J2060; J2405; J3475; J3480; J7030; J7040; Q9967